=== PATIENT | female | born 1945 | race Caucasian/White ===

== ENCOUNTER 2018-04-22 18:42 | Emergency (ER) | payer MEDICARE, OTHER ==
[2018-04-22] MEDS ORDERED: Morphine 10 MG/ML Syringe IM ONE (19:10)
--- NOTE | 2018-04-22 19:12 | EDM.PDOC ---
ED HPI GENERAL MEDICAL PROBLEM - General Chief Complaint: Upper Extremity Injury/Pain Stated Complaint: HURT RIGHT WRIST Time Seen by Provider: 04/22/18 19:10 Source of Information: Reports: Patient History Limitations: Reports: No Limitations - History of Present Illness INITIAL COMMENTS - FREE TEXT/NARRATIVE: Myrna is a 73-year-old female that fell backwards and landed on the right outstretched extremity. Complains of severe pain in that wrist and its deformed. No other significant injury sustained. Right Wrist Pain Score (Numeric/FACES): 10 - Related Data Allergies Allergy/AdvReac Type Severity Reaction Status Date / Time No Known Allergies Allergy Verified 05/28/14 09:40 Home Meds: Home Meds Omeprazole [Prilosec] 20 mg PO DAILY #30 capsule. 05/29/14 [Rx] Past Medical History Cardiovascular History: Reports: Hypertension Review of Systems - Review of Systems Review Of Systems: ROS reveals no pertinent complaints other than HPI. ED EXAM, GENERAL - Physical Exam Exam: See Below Free Text/Narrative:: Right wrist has a fork deformity , normal peripheral pulses. Significant tenderness on palpation and limited range of motion. Exam Limited By: No Limitations General Appearance: Alert Course - Vital Signs Last Recorded V/S: Last Vital Signs Temp Pulse 95 04/22/18 19:00 Resp 24 H 04/22/18 19:00 BP 130/82 04/22/18 19:00 Pulse Ox 95 04/22/18 19:00 - Orders/Labs/Meds Orders: Active Orders 24 hr Category Date Time Status Wrist Comp Min 3V Rt [CR] Stat Exams 04/22/18 19:10 Taken Meds: Medications Discontinued Medications Generic Name Dose Route Start Last Admin Trade Name Markq PRN Reason Stop Dose Admin Morphine Sulfate 10 mg 04/22/18 19:10 04/22/18 19:13 Morphine IM 04/22/18 19:11 10 mg ONETIME ONE Administration Departure - Departure Time of Disposition: 19:40 Disposition: Home, Self-Care 01 Condition: Good Clinical Impression: Closed Colles' fracture - Discharge Information Instructions: Colles Fracture Referrals: Boo Griffith MD [Primary Care Provider] - 2 Days Forms: ED Department Discharge Additional Instructions: Rest/ICE/Motrin or Tyelonol - Problem List & Annotations (1) Colles' fracture SNOMED Code(s): 974401912 Code(s): S52.539A - COLLES' FRACTURE OF UNSP RADIUS, INIT FOR CLOS FX Status: Acute Current Visit: No Qualifiers: Encounter type: initial encounter Fracture type: closed Laterality: right Qualified Code(s): S52.531A - Colles' fracture of right radius, initial encounter for closed fracture - Problem List Review Problem List Initiated/Reviewed/Updated: Yes - My Orders Last 24 Hours: My Active Orders 04/22/18 19:10 Wrist Comp Min 3V Rt [CR] Stat - Assessment/Plan Last 24 Hours: My Active Orders 04/22/18 19:10 Wrist Comp Min 3V Rt [CR] Stat Plan: Morphine 10 mg IM. I will brace her,heave a sling and DC home. I advised her to see Dr Griffith early next week,and may need surgery.
--- NOTE | 2018-04-25 15:14 | CR ---
INDICATION: Post fall. RIGHT WRIST, THREE VIEWS: FINDINGS: No comparison imaging. There is a comminuted fracture of the distal radius extending to the articular surface. There is impaction and shortening of the distal radius. Minimal radial displacement of the major distal fracture fragments. Slight dorsal displacement and dorsal angulation of the major distal fracture fragments. There is an associated fracture at the base of the styloid process of the ulna. There is diffuse osteopenia. IMPRESSION: Comminuted compacted fracture affects the distal radius, extending to the articular surface. Associated fracture at the base of the styloid process of the ulna. MTDD
== END 2018-04-22 20:05 | disposition home or self-care (01) ==
LOC: FB.ED 18:42
DX: S52.531A Colles' fracture of right radius, initial encounter for closed fracture (principal); S52.511A Displaced fracture of right radial styloid process, initial encounter for closed fracture; I10 Essential (primary) hypertension; Z79.899 Other long term (current) drug therapy; W19.XXXA Unspecified fall, initial encounter
CPT/HCPCS: 73110; 96372; 99283; J2270

== ENCOUNTER 2020-12-30 13:15 | Emergency (ER) | payer MEDICARE, OTHER ==
[2020-12-30] MEDS ORDERED: Lidocaine/EPINEPHrine/Tetracaine Soln 5 ML Each TOP ONE (13:31)
[2020-12-30] MEDS ORDERED: Diphtheria,Pertussis(Acell),Tetanus Vaccine 0.5 ML Syringe IM ONE (14:07)
--- NOTE | 2020-12-30 14:13 | EDM.PDOC ---
ED HPI GENERAL MEDICAL PROBLEM - General Stated Complaint: LACERATION Time Seen by Provider: 12/30/20 13:20 Source of Information: Reports: Patient History Limitations: Reports: No Limitations - History of Present Illness INITIAL COMMENTS - FREE TEXT/NARRATIVE: Patient presented to the ED because of a laceration at the base of her rt 3rd toe. She apparently stepped on a broken glass and sustained a c-shape 1 cm laceration. - Related Data Allergies Allergy/AdvReac Type Severity Reaction Status Date / Time morphine Allergy Nausea and Verified 12/30/20 15:04 Vomiting Home Meds: Home Meds Escitalopram Oxalate 5 mg PO DAILY 04/22/18 [History] Letrozole 2.5 mg PO DAILY 04/22/18 [History] Metoprolol Succinate 25 mg PO DAILY 04/22/18 [History] Past Medical History Cardiovascular History: Reports: Hypertension Oncologic (Cancer) History: Reports: Breast - Past Surgical History Other Oncologic Surgeries/Procedures: Pt stated she has been clear for 3 years Social & Family History - Caffeine Use Caffeine Use: Reports: None ED ROS GENERAL - Review of Systems Review Of Systems: See Below Constitutional: Reports: No Symptoms HEENT: Reports: No Symptoms Respiratory: Reports: No Symptoms Cardiovascular: Reports: No Symptoms Endocrine: Reports: No Symptoms GI/Abdominal: Reports: No Symptoms : Reports: No Symptoms Musculoskeletal: Reports: No Symptoms Skin: Reports: Wound Neurological: Reports: No Symptoms Psychiatric: Reports: No Symptoms ED EXAM, GENERAL - Physical Exam Exam: See Below Exam Limited By: No Limitations General Appearance: Alert, No Apparent Distress Ears: Normal External Exam, Normal Canal Nose: Normal Inspection, Normal Mucosa Throat/Mouth: Normal Inspection, Normal Lips, Normal Teeth Head: Atraumatic, Normocephalic Neck: Normal Inspection, Supple, Non-Tender, Full Range of Motion Respiratory/Chest: No Respiratory Distress, Lungs Clear, Normal Breath Sounds, No Accessory Muscle Use, Chest Non-Tender Cardiovascular: Normal Peripheral Pulses, Regular Rate, Rhythm, No Edema, No Gallop, No JVD, No Murmur, No Rub GI/Abdominal: Normal Bowel Sounds, Soft, Non-Tender, No Organomegaly Back Exam: Normal Inspection, Full Range of Motion Extremities: Normal Inspection, Normal Range of Motion, Non-Tender, No Pedal Edema Neurological: Alert, Oriented, CN II-XII Intact, Normal Cognition Psychiatric: Normal Affect ED GENERAL MEDICAL PROCEDURES - Laceration/Wound Repair Right Digit - 3rd (Middle) Lac/wound length in cm: 1 Appearance: Superficial Distal NVT: Neuro & Vascular Intact Anesthetic Type: Topical Skin Prep: Chlorhexidine (Hibiciens), Saline Saline irrigation (cc's): 150 Closed with: Dermabond Course - Vital Signs Text/Narrative:: Tdap Last Recorded V/S: Last Vital Signs Temp 36.6 C 12/30/20 13:15 Pulse 92 12/30/20 14:20 Resp 18 12/30/20 14:20 BP 126/87 12/30/20 14:20 Pulse Ox 97 12/30/20 14:20 - Orders/Labs/Meds Meds: Medications Discontinued Medications Generic Name Dose Route Start Last Admin Trade Name Freq PRN Reason Stop Dose Admin Diphtheria/Tetanus/Acell Pertussis 0.5 ml 12/30/20 14:07 12/30/20 14:27 Diphtheria,Pertussis(Acell),Tetanus Vaccine 0.5 Ml Syringe IM 12/30/20 14:08 0.5 ml .ONCE ONE Administration Lidocaine/Tetracaine Confirm 12/30/20 13:31 12/30/20 13:35 Lidocaine/Epinephrine/Tetracaine Soln 5 Ml Each Administered 12/30/20 13:32 5 ml Dose Administration 5 ml TOP .STK-MED ONE Departure - Departure Time of Disposition: 16:20 Disposition: Home, Self-Care 01 Condition: Good Clinical Impression: Laceration - Discharge Information Instructions: Laceration Care, Adult, [id number] Referrals: Maggie Barfield CHIEF EMBALMER [Primary Care Provider] - Forms: ED Department Discharge Additional Instructions: Please read discharge instructions on laceration care Keep your wound dry for 3-5 days Do not remove the scab, it will fall off on it's own No need to apply an antibiotic ointment, the glue is medicate Do not cover the wound Follow up as needed Sepsis Event Note (ED) - Focused Exam Vital Signs: Vital Signs Temp Pulse Resp BP Pulse Ox 12/30/20 14:20 92 18 126/87 97 12/30/20 13:15 36.6 C 81 18 138/100 H 95
== END 2020-12-30 14:40 | disposition home or self-care (01) ==
LOC: FB.ED 13:15
DX: S91.114A Laceration without foreign body of right lesser toe(s) without damage to nail, initial encounter (principal); I10 Essential (primary) hypertension; Z88.5 Allergy status to narcotic agent; Z23 Encounter for immunization; Z79.899 Other long term (current) drug therapy; W25.XXXA Contact with sharp glass, initial encounter
CPT/HCPCS: 12001; 90471; 90715; 99282; A9270

== ENCOUNTER 2022-06-29 07:05 | Day surgery (SDC) | payer MEDICARE, OTHER ==
[~2022-06-29 07:05] MED LIST: Lactated Ringers 1,000 ML IV PRN; Sodium Chloride 0.9% 10 ML Syringe FLUSH PRN
[2022-06-29] MEDS ORDERED: Midazolam 1 MG/ML 2 ML SDV IV ONE (07:06)
[2022-06-29] MEDS ORDERED: fentaNYL 100 MCG/2 ML SDV IV ONE (07:06)
[2022-06-29] MEDS ORDERED: acetaZOLAMIDE 500 MG Cap.ER PO ONE (09:00)
== END 2022-06-29 09:33 | disposition home or self-care (01) ==
LOC: FB.SDS 07:05
PROVIDERS: ATTEND Ophthalmology
DX: H26.9 Unspecified cataract (principal); I10 Essential (primary) hypertension; E66.9 Obesity, unspecified; J20.9 Acute bronchitis, unspecified; F33.1 Major depressive disorder, recurrent, moderate; F41.1 Generalized anxiety disorder; E78.2 Mixed hyperlipidemia; Z98.890 Other specified postprocedural states; Z79.899 Other long term (current) drug therapy; Z79.82 Long term (current) use of aspirin; Z68.34 Body mass index [BMI] 34.0-34.9, adult; Z88.6 Allergy status to analgesic agent
CPT/HCPCS: 00142; 66984; A9270; J2250; J3010; V2632

== ENCOUNTER 2022-07-20 06:54 | Day surgery (SDC) | payer MEDICARE, OTHER ==
[2022-07-20] MEDS ORDERED: fentaNYL 100 MCG/2 ML SDV IV ONE (06:55)
[2022-07-20] MEDS ORDERED: Midazolam 1 MG/ML 2 ML SDV IV ONE (06:55)
[2022-07-20] MEDS ORDERED: acetaZOLAMIDE 500 MG Cap.ER PO ONE (07:30)
== END 2022-07-20 09:00 | disposition home or self-care (01) ==
LOC: FB.SDS 06:54
PROVIDERS: ATTEND Ophthalmology
DX: E11.36 Type 2 diabetes mellitus with diabetic cataract (principal); H25.813 Combined forms of age-related cataract, bilateral; H35.372 Puckering of macula, left eye; H43.811 Vitreous degeneration, right eye; H40.013 Open angle with borderline findings, low risk, bilateral; I10 Essential (primary) hypertension; J40 Bronchitis, not specified as acute or chronic; F41.1 Generalized anxiety disorder; F33.9 Major depressive disorder, recurrent, unspecified; E66.9 Obesity, unspecified; E78.2 Mixed hyperlipidemia; E78.5 Hyperlipidemia, unspecified; J96.01 Acute respiratory failure with hypoxia; Z98.890 Other specified postprocedural states; Z79.899 Other long term (current) drug therapy; Z88.6 Allergy status to analgesic agent
CPT/HCPCS: 00142-QZ; A9270-GY; J2250; J3010; J7120; V2632

== ENCOUNTER 2022-09-22 11:10 | Inpatient (IN) | payer MEDICARE, OTHER ==
[2022-09-22] MEDS ORDERED: Benzonatate 100 MG Cap PO PRN (14:54)
[2022-09-22] MEDS ORDERED: Bisacodyl 10 MG Supp RECTAL PRN (15:14)
[2022-09-22] MEDS: Acetaminophen 500 MG Tab PO SCH ×2 (15:46→21:05)
[2022-09-22] MEDS ORDERED: SODIUM FLUORIDE SCH (21:00)
[2022-09-22] MEDS ORDERED: POTASSIUM NIT SCH (21:00)
[2022-09-22] MEDS ORDERED: [UNRECOGNIZED DRUG - OTHER] SCH (21:00)
[2022-09-22] MEDS: Escitalopram 20 MG Tab PO SCH (21:05)
[2022-09-22] MEDS: Metoprolol Succinate 25 MG Tab.ER PO SCH (21:05)
[2022-09-22] MEDS: Simvastatin 20 MG Tab PO SCH (21:06)
[2022-09-22] MEDS: buPROPion 150 MG Tab.ER PO SCH (21:06)
[2022-09-22] MEDS: Cholecalciferol (Vitamin D3) 25 MCG Tab PO SCH (21:06)
[2022-09-23] MEDS: PREDNISOLONE ACETATE 1% EYELF SCH (08:27)
[2022-09-23] MEDS: Cyanocobalamin (Vitamin B12) 1,000 MCG Tab PO SCH (08:28)
[2022-09-23] MEDS: Aspirin 325 MG Tab.EC PO SCH (08:28)
[2022-09-23] MEDS: Hydrochlorothiazide 12.5 MG Cap PO SCH (08:28)
[2022-09-23] MEDS: Ascorbic Acid 500 MG Tab PO SCH (08:28)
[2022-09-23] MEDS: Cholecalciferol (Vitamin D3) 25 MCG Tab PO SCH ×2 (08:28→20:59)
[2022-09-23] MEDS: Acetaminophen 500 MG Tab PO SCH ×3 (08:28→20:55)
[2022-09-23] MEDS: Multivitamins with Iron/Calcium/Folic Acid/Minerals Tab PO SCH (08:28)
[2022-09-23] MEDS: oxyCODONE 5 MG Tab PO PRN ×2 (17:39→21:21)
[2022-09-23] MEDS: Escitalopram 20 MG Tab PO SCH (20:52)
[2022-09-23] MEDS: buPROPion 150 MG Tab.ER PO SCH (20:56)
[2022-09-23] MEDS: Simvastatin 20 MG Tab PO SCH (20:57)
[2022-09-23] MEDS: Metoprolol Succinate 25 MG Tab.ER PO SCH (21:05)
[2022-09-23] MEDS: Melatonin 3 MG Tab PO PRN (21:09)
[2022-09-24] MEDS: PREDNISOLONE ACETATE 1% EYELF SCH (08:00)
[2022-09-24] MEDS: Acetaminophen 500 MG Tab PO SCH ×3 (08:01→21:44)
[2022-09-24] MEDS: Ascorbic Acid 500 MG Tab PO SCH (08:03)
[2022-09-24] MEDS: Hydrochlorothiazide 12.5 MG Cap PO SCH (08:03)
[2022-09-24] MEDS: Aspirin 325 MG Tab.EC PO SCH (08:04)
[2022-09-24] MEDS: Multivitamins with Iron/Calcium/Folic Acid/Minerals Tab PO SCH (08:04)
[2022-09-24] MEDS: Cyanocobalamin (Vitamin B12) 1,000 MCG Tab PO SCH (08:04)
[2022-09-24] MEDS: Cholecalciferol (Vitamin D3) 25 MCG Tab PO SCH ×2 (08:04→21:46)
[2022-09-24] MEDS: Escitalopram 20 MG Tab PO SCH (21:44)
[2022-09-24] MEDS: Simvastatin 20 MG Tab PO SCH (21:47)
[2022-09-24] MEDS: buPROPion 150 MG Tab.ER PO SCH (21:47)
[2022-09-24] MEDS: Metoprolol Succinate 25 MG Tab.ER PO SCH (21:57)
[2022-09-24] MEDS: Melatonin 3 MG Tab PO PRN (21:59)
[2022-09-25] MEDS: Aspirin 325 MG Tab.EC PO SCH (08:58)
[2022-09-25] MEDS: Acetaminophen 500 MG Tab PO SCH ×3 (08:58→21:46)
[2022-09-25] MEDS: Hydrochlorothiazide 12.5 MG Cap PO SCH (08:58)
[2022-09-25] MEDS: Cholecalciferol (Vitamin D3) 25 MCG Tab PO SCH ×2 (08:59→21:47)
[2022-09-25] MEDS: Cyanocobalamin (Vitamin B12) 1,000 MCG Tab PO SCH (08:59)
[2022-09-25] MEDS: Multivitamins with Iron/Calcium/Folic Acid/Minerals Tab PO SCH (09:00)
[2022-09-25] MEDS: Ascorbic Acid 500 MG Tab PO SCH (09:02)
[2022-09-25] MEDS: PREDNISOLONE ACETATE 1% EYELF SCH (09:02)
[2022-09-25] MEDS: Escitalopram 20 MG Tab PO SCH (21:45)
[2022-09-25] MEDS: buPROPion 150 MG Tab.ER PO SCH (21:47)
[2022-09-25] MEDS: Metoprolol Succinate 25 MG Tab.ER PO SCH (21:48)
[2022-09-25] MEDS: Simvastatin 20 MG Tab PO SCH (21:48)
[2022-09-26] MEDS: Aspirin 325 MG Tab.EC PO SCH (08:17)
[2022-09-26] MEDS: Cholecalciferol (Vitamin D3) 25 MCG Tab PO SCH ×2 (08:17→22:06)
[2022-09-26] MEDS: Ascorbic Acid 500 MG Tab PO SCH (08:18)
[2022-09-26] MEDS: Cyanocobalamin (Vitamin B12) 1,000 MCG Tab PO SCH (08:18)
[2022-09-26] MEDS: Multivitamins with Iron/Calcium/Folic Acid/Minerals Tab PO SCH (08:18)
[2022-09-26] MEDS: Hydrochlorothiazide 12.5 MG Cap PO SCH (08:19)
[2022-09-26] MEDS: PREDNISOLONE ACETATE 1% EYELF SCH (08:19)
[2022-09-26] MEDS: Acetaminophen 500 MG Tab PO SCH ×3 (08:20→22:05)
[2022-09-26] MEDS: Metoprolol Succinate 25 MG Tab.ER PO SCH (22:05)
[2022-09-26] MEDS: Escitalopram 20 MG Tab PO SCH (22:05)
[2022-09-26] MEDS: buPROPion 150 MG Tab.ER PO SCH (22:07)
[2022-09-26] MEDS: Simvastatin 20 MG Tab PO SCH (22:07)
[2022-09-27] MEDS: Cholecalciferol (Vitamin D3) 25 MCG Tab PO SCH ×2 (08:21→21:23)
[2022-09-27] MEDS: Aspirin 325 MG Tab.EC PO SCH (08:21)
[2022-09-27] MEDS: Acetaminophen 500 MG Tab PO SCH ×4 (08:21→21:38)
[2022-09-27] MEDS: Multivitamins with Iron/Calcium/Folic Acid/Minerals Tab PO SCH (08:22)
[2022-09-27] MEDS: Hydrochlorothiazide 12.5 MG Cap PO SCH (08:22)
[2022-09-27] MEDS: Ascorbic Acid 500 MG Tab PO SCH (08:22)
[2022-09-27] MEDS: PREDNISOLONE ACETATE 1% EYELF SCH (08:22)
[2022-09-27] MEDS: Cyanocobalamin (Vitamin B12) 1,000 MCG Tab PO SCH (08:23)
[2022-09-27] MEDS: Celecoxib 100 MG Cap PO SCH (21:23)
[2022-09-27] MEDS: Escitalopram 20 MG Tab PO SCH (21:23)
[2022-09-27] MEDS: Simvastatin 20 MG Tab PO SCH (21:23)
[2022-09-27] MEDS: buPROPion 150 MG Tab.ER PO SCH (21:24)
[2022-09-27] MEDS: Metoprolol Succinate 25 MG Tab.ER PO SCH (21:38)
[2022-09-28] MEDS: Hydrochlorothiazide 12.5 MG Cap PO SCH (08:58)
[2022-09-28] MEDS: Aspirin 325 MG Tab.EC PO SCH (08:59)
[2022-09-28] MEDS: PREDNISOLONE ACETATE 1% EYELF SCH (08:59)
[2022-09-28] MEDS: Multivitamins with Iron/Calcium/Folic Acid/Minerals Tab PO SCH (09:00)
[2022-09-28] MEDS: Ascorbic Acid 500 MG Tab PO SCH (09:01)
[2022-09-28] MEDS: Cyanocobalamin (Vitamin B12) 1,000 MCG Tab PO SCH (09:01)
[2022-09-28] MEDS: Acetaminophen 500 MG Tab PO SCH ×4 (09:02→20:31)
[2022-09-28] MEDS: Cholecalciferol (Vitamin D3) 25 MCG Tab PO SCH ×2 (09:03→20:32)
[2022-09-28] MEDS: Metoprolol Succinate 25 MG Tab.ER PO SCH (20:30)
[2022-09-28] MEDS: buPROPion 150 MG Tab.ER PO SCH (20:31)
[2022-09-28] MEDS: Simvastatin 20 MG Tab PO SCH (20:31)
[2022-09-28] MEDS: Celecoxib 100 MG Cap PO SCH (20:31)
[2022-09-28] MEDS: Escitalopram 20 MG Tab PO SCH (20:31)
[2022-09-29] MEDS: Cholecalciferol (Vitamin D3) 25 MCG Tab PO SCH ×2 (09:08→22:00)
[2022-09-29] MEDS: Ascorbic Acid 500 MG Tab PO SCH (09:08)
[2022-09-29] MEDS: Hydrochlorothiazide 12.5 MG Cap PO SCH (09:08)
[2022-09-29] MEDS: Cyanocobalamin (Vitamin B12) 1,000 MCG Tab PO SCH (09:08)
[2022-09-29] MEDS: Aspirin 325 MG Tab.EC PO SCH (09:08)
[2022-09-29] MEDS: PREDNISOLONE ACETATE 1% EYELF SCH (09:09)
[2022-09-29] MEDS: Acetaminophen 500 MG Tab PO SCH ×4 (09:09→22:00)
[2022-09-29] MEDS: Multivitamins with Iron/Calcium/Folic Acid/Minerals Tab PO SCH (09:09)
[2022-09-29] MEDS: Simvastatin 20 MG Tab PO SCH (22:00)
[2022-09-29] MEDS: buPROPion 150 MG Tab.ER PO SCH (22:00)
[2022-09-29] MEDS: Escitalopram 20 MG Tab PO SCH (22:00)
[2022-09-29] MEDS: Celecoxib 100 MG Cap PO SCH (22:00)
[2022-09-29] MEDS: Metoprolol Succinate 25 MG Tab.ER PO SCH (22:00)
[2022-09-30] MEDS: Cholecalciferol (Vitamin D3) 25 MCG Tab PO SCH ×2 (08:31→22:03)
[2022-09-30] MEDS: PREDNISOLONE ACETATE 1% EYELF SCH (08:31)
[2022-09-30] MEDS: Aspirin 325 MG Tab.EC PO SCH (08:31)
[2022-09-30] MEDS: Multivitamins with Iron/Calcium/Folic Acid/Minerals Tab PO SCH (08:32)
[2022-09-30] MEDS: Hydrochlorothiazide 12.5 MG Cap PO SCH (08:32)
[2022-09-30] MEDS: Cyanocobalamin (Vitamin B12) 1,000 MCG Tab PO SCH (08:33)
[2022-09-30] MEDS: Acetaminophen 500 MG Tab PO SCH ×4 (08:33→22:06)
[2022-09-30] MEDS: Ascorbic Acid 500 MG Tab PO SCH (08:34)
[2022-09-30] MEDS: Metoprolol Succinate 25 MG Tab.ER PO SCH (22:04)
[2022-09-30] MEDS: Celecoxib 100 MG Cap PO SCH (22:05)
[2022-09-30] MEDS: Escitalopram 20 MG Tab PO SCH (22:05)
[2022-09-30] MEDS: buPROPion 150 MG Tab.ER PO SCH (22:06)
[2022-09-30] MEDS: Simvastatin 20 MG Tab PO SCH (22:07)
[2022-10-01] MEDS: Ascorbic Acid 500 MG Tab PO SCH (08:47)
[2022-10-01] MEDS: PREDNISOLONE ACETATE 1% EYELF SCH (08:47)
[2022-10-01] MEDS: Aspirin 325 MG Tab.EC PO SCH (08:48)
[2022-10-01] MEDS: Acetaminophen 500 MG Tab PO SCH ×4 (08:48→22:01)
[2022-10-01] MEDS: Hydrochlorothiazide 12.5 MG Cap PO SCH (08:48)
[2022-10-01] MEDS: Multivitamins with Iron/Calcium/Folic Acid/Minerals Tab PO SCH (08:48)
[2022-10-01] MEDS: Cyanocobalamin (Vitamin B12) 1,000 MCG Tab PO SCH (08:49)
[2022-10-01] MEDS: Cholecalciferol (Vitamin D3) 25 MCG Tab PO SCH ×2 (08:49→22:02)
[2022-10-01] MEDS: Simvastatin 20 MG Tab PO SCH (22:01)
[2022-10-01] MEDS: Metoprolol Succinate 25 MG Tab.ER PO SCH (22:02)
[2022-10-01] MEDS: Celecoxib 100 MG Cap PO SCH (22:03)
[2022-10-01] MEDS: Escitalopram 20 MG Tab PO SCH (22:03)
[2022-10-01] MEDS: buPROPion 150 MG Tab.ER PO SCH (22:03)
[2022-10-02] MEDS: Aspirin 325 MG Tab.EC PO SCH (09:32)
[2022-10-02] MEDS: Hydrochlorothiazide 12.5 MG Cap PO SCH (09:32)
[2022-10-02] MEDS: PREDNISOLONE ACETATE 1% EYELF SCH (09:32)
[2022-10-02] MEDS: Cyanocobalamin (Vitamin B12) 1,000 MCG Tab PO SCH (09:33)
[2022-10-02] MEDS: Acetaminophen 500 MG Tab PO SCH ×4 (09:33→20:55)
[2022-10-02] MEDS: Cholecalciferol (Vitamin D3) 25 MCG Tab PO SCH ×2 (09:34→20:58)
[2022-10-02] MEDS: Ascorbic Acid 500 MG Tab PO SCH (09:35)
[2022-10-02] MEDS: Multivitamins with Iron/Calcium/Folic Acid/Minerals Tab PO SCH (09:36)
[2022-10-02] MEDS: Celecoxib 100 MG Cap PO SCH (20:52)
[2022-10-02] MEDS: Escitalopram 20 MG Tab PO SCH (20:53)
[2022-10-02] MEDS: Metoprolol Succinate 25 MG Tab.ER PO SCH (20:54)
[2022-10-02] MEDS: buPROPion 150 MG Tab.ER PO SCH (20:55)
[2022-10-02] MEDS: Simvastatin 20 MG Tab PO SCH (20:56)
[2022-10-03] MEDS: Hydrochlorothiazide 12.5 MG Cap PO SCH (09:08)
[2022-10-03] MEDS: Aspirin 325 MG Tab.EC PO SCH (09:08)
[2022-10-03] MEDS: PREDNISOLONE ACETATE 1% EYELF SCH (09:08)
[2022-10-03] MEDS: Acetaminophen 500 MG Tab PO SCH ×4 (09:09→21:55)
[2022-10-03] MEDS: Cyanocobalamin (Vitamin B12) 1,000 MCG Tab PO SCH (09:09)
[2022-10-03] MEDS: Multivitamins with Iron/Calcium/Folic Acid/Minerals Tab PO SCH (09:09)
[2022-10-03] MEDS: Cholecalciferol (Vitamin D3) 25 MCG Tab PO SCH ×2 (09:10→21:56)
[2022-10-03] MEDS: Ascorbic Acid 500 MG Tab PO SCH (09:10)
[2022-10-03] MEDS: Celecoxib 100 MG Cap PO SCH (21:53)
[2022-10-03] MEDS: Metoprolol Succinate 25 MG Tab.ER PO SCH (21:54)
[2022-10-03] MEDS: Simvastatin 20 MG Tab PO SCH (21:54)
[2022-10-03] MEDS: Escitalopram 20 MG Tab PO SCH (21:54)
[2022-10-03] MEDS: buPROPion 150 MG Tab.ER PO SCH (21:55)
[2022-10-04] MEDS: Aspirin 325 MG Tab.EC PO SCH (08:03)
[2022-10-04] MEDS: Hydrochlorothiazide 12.5 MG Cap PO SCH (08:03)
[2022-10-04] MEDS: PREDNISOLONE ACETATE 1% EYELF SCH (08:04)
[2022-10-04] MEDS: Acetaminophen 500 MG Tab PO SCH ×4 (08:05→20:55)
[2022-10-04] MEDS: Multivitamins with Iron/Calcium/Folic Acid/Minerals Tab PO SCH (08:05)
[2022-10-04] MEDS: Cyanocobalamin (Vitamin B12) 1,000 MCG Tab PO SCH (08:06)
[2022-10-04] MEDS: Ascorbic Acid 500 MG Tab PO SCH (08:06)
[2022-10-04] MEDS: Cholecalciferol (Vitamin D3) 25 MCG Tab PO SCH ×2 (08:06→20:54)
[2022-10-04] MEDS: Celecoxib 100 MG Cap PO SCH (20:52)
[2022-10-04] MEDS: Escitalopram 20 MG Tab PO SCH (20:53)
[2022-10-04] MEDS: buPROPion 150 MG Tab.ER PO SCH (20:54)
[2022-10-04] MEDS: Simvastatin 20 MG Tab PO SCH (20:54)
[2022-10-04] MEDS: Metoprolol Succinate 25 MG Tab.ER PO SCH (20:58)
[2022-10-05] MEDS: Acetaminophen 500 MG Tab PO SCH ×3 (06:20→12:05)
[2022-10-05] MEDS: Ascorbic Acid 500 MG Tab PO SCH (08:35)
[2022-10-05] MEDS: Cyanocobalamin (Vitamin B12) 1,000 MCG Tab PO SCH (08:35)
[2022-10-05] MEDS: Hydrochlorothiazide 12.5 MG Cap PO SCH (08:35)
[2022-10-05] MEDS: Multivitamins with Iron/Calcium/Folic Acid/Minerals Tab PO SCH (08:35)
[2022-10-05] MEDS: Aspirin 325 MG Tab.EC PO SCH (08:35)
[2022-10-05] MEDS: PREDNISOLONE ACETATE 1% EYELF SCH (08:37)
[2022-10-05] MEDS: Cholecalciferol (Vitamin D3) 25 MCG Tab PO SCH (08:37)
[2022-11-01] MEDS ORDERED: Aspirin 81 MG Tab.EC PO SCH (09:00)
[2022-11-03] MEDS ORDERED: Aspirin 81 MG Tab.EC PO SCH (09:00)
== END 2022-10-05 15:00 | disposition home health service (06) | DRG 560 ==
LOC: FB.MS 14:18
PROVIDERS: ADMIT Family Medicine; ATTEND Family Medicine
DX: S82.851D Displaced trimalleolar fracture of right lower leg, subsequent encounter for closed fracture with routine healing (principal); F33.1 Major depressive disorder, recurrent, moderate; H44.002 Unspecified purulent endophthalmitis, left eye; R53.81 Other malaise; I10 Essential (primary) hypertension; E78.5 Hyperlipidemia, unspecified; R25.1 Tremor, unspecified; E78.00 Pure hypercholesterolemia, unspecified; E66.9 Obesity, unspecified; E78.2 Mixed hyperlipidemia; N39.46 Mixed incontinence; F41.1 Generalized anxiety disorder; Z79.82 Long term (current) use of aspirin; Z79.52 Long term (current) use of systemic steroids; Z79.899 Other long term (current) drug therapy; Z98.890 Other specified postprocedural states; Z87.81 Personal history of (healed) traumatic fracture
CPT/HCPCS: 97110-GO; 97110-GP; 97116-GP; 97140-GP; 97161-GP; 97165-GO; 97530-GO; 97530-GP; 97535-GO; A9270-GY